=== PATIENT | female | born 1985 | race American Indian/Alaskan Native ===

== ENCOUNTER 2022-10-08 15:43 | Observation (INO) | payer OTHER, SELFPAY ==
[2022-10-08] VITALS (8 sets, daily range): BP systolic 109–135; BP diastolic 68–82; PULSE 75–99; RESP 13–20; TEMP 36.6–37.4; O2SAT 99–100; BMI 23.3
--- NOTE | ~2022-10-08 | MR_ITS ---
EXAMINATION: MR brain/brain stem wo con DATE: 10/11/2022 17:37 INDICATION: Seizure TECHNIQUE: Magnetic resonance imaging (MRI) of the brain and brainstem was performed without intraven ous contrast. Sequences included sagittal and axial T1-weighted SE, axial diffusion-weighted FS SE, a xial 3D SWAN, axial T2-weighted FLAIR Propeller, axial T2-weighted Propeller, coronal T2-weighted FLA IR, and coronal T1-weighted 3D FSPGR. Postcontrast axial T1-weighted SE was obtained. Apparent diffus ion coefficient (ADC) maps were created. COMPARISON: Head CT dated 10/08/2022 FINDINGS: There are no areas of restricted diffusion to suggest acute infarction. No intracranial hemorrhage or abnormal intracranial mass lesion. There are no intraparenchymal signal abnormalities seen on the ot her pulse sequences. Bilateral hippocampi appear normal and symmetric. No evident worley matter heterot opias or other neuronal migrational abnormalities. The ventricles are symmetric and normal in size. T here are no abnormal extra-axial fluid collections. Flow voids are seen in the cerebral arteries on t he T2-weighted sequences consistent with their expected patency. Small focus of susceptibility artifa ct along the left frontoparietal scalp likely related to a reported skin radha from recent posttrau matic scalp laceration. Visualized orbits and soft tissues are unremarkable. IMPRESSION: 1. Normal brain. Reviewed, dictated and finalized at location A. IMPRESSION: 1. Normal brain.
--- NOTE | ~2022-10-08 | CT_ITS ---
EXAMINATION: CT cervical spine wo con DATE: 10/08/2022 16:48 INDICATION: Head injury. TECHNIQUE: Computed tomography (CT) of the cervical spine was performed without intravenous contrast. Automated exposure control and iterative reconstruction technique were employed. The dose-length pro duct was 160.61 mGy-cm. COMPARISON: None FINDINGS: There is 3 degrees levocurvature of cervical spine. Vertebral body heights and intervertebr al disc heights are normal. The following disc levels are specifically discussed: C2-C3 through C6-C7: There is no uncovertebral joint osteoarthritis. There is no facet joint osteoart hritis. There is no neural foraminal stenosis. There is no central canal stenosis. C7-T1: There is no uncovertebral joint osteoarthritis. There is mild right and moderate left facet nicho int osteoarthritis. There is mild left neural foraminal stenosis. There is no central canal stenosis. IMPRESSION: 1. No fracture. 2. Mild cervical spondylosis. Reviewed, dictated and finalized at location E.
--- NOTE | ~2022-10-08 | CT_ITS ---
EXAMINATION: CT brain wo con DATE: 10/08/2022 16:48 INDICATION: Head injury. TECHNIQUE: Computed tomography (CT) of the head was performed without intravenous contrast. The mA wa s adjusted according to patient size. Iterative reconstruction technique was employed. The dose-lengt h product was 605.33 mGy-cm. COMPARISON: Head CT 01/16/2009 FINDINGS: There is no intracranial hemorrhage, acute infarction, or abnormal intracranial mass lesion . The ventricles are normal in size. There is left-sided scalp soft tissue swelling. The paranasal si nuses are clear. The mastoid air cells are normal. The orbits are normal. IMPRESSION: 1. Normal brain. Reviewed, dictated and finalized at location E. IMPRESSION: 1. Normal brain.
--- NOTE | ~2022-10-08 | US_ITS ---
EXAMINATION: US carotid duplex BI DATE: 10/09/2022 14:08 INDICATION: Syncope. TECHNIQUE: Grayscale, color Doppler, and pulsed Doppler images of the cervical carotid arteries were obtained. The degree of vessel stenosis is placed in one of the following categories: normal, <50%, 5 0-69%, >=70% but less than near-occlusion, near-occlusion, or total occlusion. Note that percent sten osis relative to normal distal artery lumen diameter is indirectly measured from velocity measurement s as described by Vivek, et al. Radiology 2003; 229:340-346. COMPARISON: None. FINDINGS: RIGHT: The right common carotid artery (CCA) peak systolic velocity (PSV) is 120 cm/s. The right internal ca rotid artery (ICA) PSV is 89 cm/s. The right ICA end-diastolic velocity (EDV) is 29 cm/s. The right I CA/CCA PSV ratio is 0.7. Grayscale and color Doppler images yield an estimate of 0% diameter reductio n from plaque in the ICA. There is antegrade flow in the right vertebral artery. LEFT: The left CCA PSV is 127 cm/s. The left ICA PSV is 74 cm/s. The left ICA EDV is 29 cm/s. The left ICA/ CCA PSV ratio is 0.6. Grayscale and color Doppler images yield an estimate of 0% diameter reduction f rom plaque in the ICA. There is antegrade flow in the left vertebral artery. IMPRESSION: 1. Normal internal carotid arteries. Reviewed, dictated and finalized at location E.
--- NOTE | 2022-10-08 17:15 | ECG_ITS ---
Measurements Intervals [place] Rate: 76 P: 75 VA: 197 QRS: 68 QRSD: 122 T: 73 QT: 393 QTc: 443 Interpretive Statements SINUS RHYTHM POSSIBLE RIGHT VENTRICULAR CONDUCTION DELAY [RSR (QR) IN V1/V2] SEPTAL MYOCARDIAL INFARCTION , OF INDETERMINATE AGE [40+ ms Q WAVE IN V1/V2] COMPARED TO ECG 04/20/2018 07:07:42 ABNORMAL ECG SINUS RHYTHM NOW PRESENT MYOCARDIAL INFARCT FINDING NOW PRESENT Electronically Signed On 10-09-2022 10:03:57 CDT by Junior Mayes M.D.
--- NOTE | 2022-10-08 17:16 | ED.HEATRA ---
HPI - Head Injury General Chief complaint: Head Injury <JODI Howard Last Filed: 10/08/22 19:55> Stated complaint: head injury, glf <JODI Howard Last Filed: 10/08/22 19:55> Time Seen by Provider: 10/08/22 15:57 <JODI Howard Last Filed: 10/08/22 19:55> Source: patient and family <JODI Howard Last Filed: 10/08/22 19:55> Mode of arrival: EMS <JODI Howard Last Filed: 10/08/22 19:55> Limitations: no limitations <JODI Howard Last Filed: 10/08/22 19:55> History of Present Illness HPI Narrative: Patient is a 37-year-old female who presents to the ED via EMS with report of fall with head injury. Patient reports she was at a family members birthday alliance party today and went out to her car to get her chapstick. She states last thing she remembers is walking out of the door and getting near her car. She was found on the ground by another family member having hit her head and being temporarily unconscious. Patient did arouse when her name was called. There was a laceration noted to the left side of her head. Mother at bedside reports the family member that found her thought there may have been some seizure-like activity/shaking initially before the patient came to. Patient does not remember the fall. She does not remember feeling dizzy or lightheaded before the fall occurred. She does not remember tripping on anything. Mother notes there was a curb right nearby where the patient had fallen. She reports a remote history of a seizure 10 years ago which was thought to be attributed to her taking tramadol. She has not had any further seizures. She is not on any seizure medication or blood thinners. Patient reports she feels lightheaded and nauseous currently. Denies any other areas of pain. Denies vision changes. Denies weakness or numbness. Denies incontinence. Denies tongue injury. Patient denies any cardiac disease. Denies family history of sudden cardiac . <Miryam Birmingham PA-C - Last Filed: 10/08/22 19:55> Related Data Home medications: Home Medications Medication Instructions Recorded Confirmed acetaminophen 325 mg tablet 650 mg PO PRN PRN Pain (Scale 10/08/22 10/08/22 (Tylenol) Score 1-3) norgestimate 0.25 mg-ethinyl 1 tablet PO DAILY 10/08/22 10/08/22 estradiol 35 mcg tablet (Haylee) <Miryam Birmingham PA-C - Last Filed: 10/08/22 19:55> Allergies/Adverse reactions: Allergies Allergy/AdvReac Type Severity Reaction Status Date / Time No Known Allergies Allergy Unknown Verified 10/08/22 21:37 <Miryam Birmingham PA-C - Last Filed: 10/08/22 19:55> Review of Systems Review of Systems: CONSTITUTIONAL: Denies fever, chills, or sweats. EYES: Denies visual changes. CARDIOVASCULAR: Denies chest pain. RESPIRATORY: Denies dyspnea. GASTROINTESTINAL: See HPI. MUSCULOSKELETAL: Denies back pain, joint pain, or myalgia. NEUROLOGIC: See HPI. <Miryam Birmingham PA-C - Last Filed: 10/08/22 19:55> All systems reviewed & are unremarkable except as noted in HPI and below <Miryam Birmingham PA-C - Last Filed: 10/08/22 19:55> [facility] Past Medical History Medical History: Medical History (Updated 10/09/22 @ 16:09 by Bharat Perry APRN) Anxiety Single seizure <Miryam Birmingham PA-C - Last Filed: 10/08/22 19:55> Surgical History Surgical History: Surgical History (Updated 10/08/22 @ 21:27 by Susan Oliveros PA-C) History of tonsillectomy <Miryam Birmingham PA-C - Last Filed: 10/08/22 19:55> Family History Family History: Family History Other Unknown family medical history <Miryam Birmingham PA-C - Last Filed: 10/08/22 19:55> Social History Social History: Social History (Updated 10/08/22 @ 22:48 by Susan Oliveros PA-C) Social History: Heidi
[2022-10-08] MEDS: SODIUM CHLORIDE 0.9% IV 1,000 ML 999 ML IV CONT ×2 (17:24→18:13)
[2022-10-08] MEDS: ONDANSETRON INJ 4 MG/2 ML VIAL IV PUSH (17:24)
[2022-10-08] MEDS: ACETAMINOPHEN 500 MG TABLET 1000 MG PO (18:04)
[2022-10-08 19:13] LABS: Basophils Percent Auto 0.3 % (0.2-1.2); Eosinophils Percent Auto 0.2 % (0-4.4); Hematocrit 36.7 % (37.0-47.0); Hemoglobin 11.8 g/dL (12.0-15.0); Immature Granulocyte Absolute 0.02 K/mm3 (0.00-0.031); Immature Granulocyte Percent A 0.2 % (0-0.5); Lymphocytes Absolute Auto 0.82 K/mm3 (0.9-3.2); Lymphocytes Percent Auto 7.6 % (18.3-44.2); Mean Corpuscular HGB Conc 32.2 g/dl (32-36); Mean Corpuscular Hemoglobin 31.2 pg (26-34); Mean Corpuscular Volume 97.1 fl (80-100); Mean Platelet Volume 10.4 fl (7.4-10.4); Monocytes Absolute Auto 0.5 K/mm3 (0.1-0.6); Neutrophils Absolute Auto 9.3 K/mm3 (1.3-6.7); Neutrophils Percent Auto 86.7 % (45.5-73.1); Platelet Count Result 199 k/mm3 (150-375); Red Blood Count 3.78 M/mm3 (4.2-5.4); Red Cell Distribution Width 13.2 % (11.5-14.5); White Blood Count 10.8 K/mm3 (4.5-10.0)
[2022-10-08 19:22] LABS: Appearance Urine Clear (Clear); Bilirubin Urine Negative (Negative); Blood Urine Negative (Negative); Color Urine Yellow (Yellow); Glucose Urine UA Negative (Negative); Ketones Urine Negative (Negative); Leukocyte Esterase Ur Negative LEU/UL (Negative); Nitrate Urine Negative (Negative); Protein Urine Negative (Negative); Urobilinogen Urine 0.2 mg/dL (<2.0)
[2022-10-08 19:23] LABS: Add Urine Microscopic? NO
[2022-10-08 19:27] LABS: Prothrombin Time 13.9 Seconds (11.1-14.7)
[2022-10-08 19:28] LABS: Partial Thromboplastin Time 27.9 SECONDS (22.3-36.8)
[2022-10-08 19:38] LABS: Alanine Aminotransferase 15 U/L (6-35); Albumin Level 3.7 g/dL (3.5-5.1); Alkaline Phosphatase 44 U/L (38-126); Anion Gap 8 mmol/L (8-16); Aspartate Amino Transferase 23 U/L (14-36); Bilirubin,Total 0.2 mg/dL (0.2-1.3); Blood Urea Nitrogen 8 mg/dL (7-17); Calcium 7.4 mg/dL (8.4-10.2); Carbon Dioxide 23 mmol/L (22-30); Chloride 106 mmol/L (98-107); Estimated CRCL calculation 118 ml/min; Estimated Glomerular Filt Rate > 60; Glucose 93 mg/dL (65-110); Magnesium 1.7 mg/dL (1.6-2.3); Potassium 4.3 mmol/L (3.4-5.0); Sodium 137 mmol/L (137-145)
[2022-10-08 19:40] LABS: Lactic Acid Reflex 1.3 mmol/L (0.7-2.0)
[2022-10-08 19:49] LABS: Troponin I < 0.012 ng/mL (0.000-0.034)
[2022-10-08] MEDS: NICOTINE (*PBKC) 14 MG PATCH 1 PATCH TRANSDERM (20:30)
--- NOTE | 2022-10-08 20:35 | ADMGEN ---
This patient, Diane Shook, was admitted to Medical Room 346-01. Patient/family oriented to hospital policies and general routines including ID bracelet, bed and alarms, visiting hours, pain management, procedures, bathroom and other care routines, personal items, smoking policy, room service/diet, and visiting hours. Information on how to activate the Rapid Response Team has been discussed. Patient/Family are encouraged to report perceived risks to care and to ask questions if they do not understand what they are told or what they should do.
--- NOTE | 2022-10-08 21:23 | PM.IMHP ---
H&P: HPI History of Present Illness Date/Time: 10/08/22 21:30 Chief Complaint: Head injury, loss of consciousness. Narrative: This is a pleasant 37-year-old female with history of single seizure attributed a combination of medications who presented to the emergency department via EMS for evaluation of head injury and loss of consciousness. The patient provides the following history. She was in her usual state of health today and this afternoon she was at a birthday libertarian for a family member. She remembers walking out to her car to get her lip balm and to vape and the next thing she knows she is waking up on the ground. Family members found her unconscious next to the car with mild shaking of her extremities. It sounds as though she was only briefly unresponsive and she was alert and oriented when she came to. There was no tongue bite or bladder or bowel incontinence with this episode. She denies antecedent symptoms and specifically denies feelings of lightheadedness, dizziness, chest pain, pleuritic pain, palpitations, shortness of breath, nausea, vomiting, and sweats. Vital signs were stable on arrival to the ED. CMP and CBC were unremarkable compared to previous labs. EKG showed a sinus rhythm without acute ST segment changes. Head and cervical spine CTs did not show any acute findings. A left parietal scalp laceration was repaired in the ED. She is being admitted in this setting for close monitoring and further evaluation. Review of Systems Review of Systems: Twelve systems were reviewed and are negative except for as per HPI. [facility] Past Medical History Medical History (Updated 10/08/22 @ 22:50 by Susan Oliveros PA-C) Anxiety Single seizure Surgical History Surgical History (Updated 10/08/22 @ 21:27 by Susan Oliveros PA-C) History of tonsillectomy Family History Family History Other Unknown family medical history Social History Social History (Updated 10/08/22 @ 22:48 by Susan Oliveros PA-C) Social History: Surrogate medical decision maker: Leann Howe, mother. Code status: Full code. Smoking status: Current every day smoker Tobacco type: e-cigarettes/vaping Additional occupation/education comments: polisher hand. Meds Home Medications and Allergies Home Medications Medication Instructions Recorded Confirmed Type acetaminophen 325 mg tablet 650 mg PO PRN PRN Pain (Scale 10/08/22 10/08/22 History (Tylenol) Score 1-3) norgestimate 0.25 mg-ethinyl 1 tablet PO DAILY 10/08/22 10/08/22 History estradiol 35 mcg tablet (Haylee) Allergies Allergy/AdvReac Type Severity Reaction Status Date / Time No Known Allergies Allergy Unknown Verified 10/08/22 21:37 Vital Signs Vital Signs - 24 hr 10/08/22 15:42 10/08/22 15:45 10/08/22 16:15 Temperature 99.4 F Pulse Rate 97 99 90 Respiratory Rate 18 16 20 Blood Pressure 135/79 135/79 128/77 Pulse Oximetry 99 100 99 Oxygen Delivery Room Air 10/08/22 16:45 10/08/22 17:15 10/08/22 17:45 Temperature Pulse Rate 90 83 75 Respiratory Rate 18 19 13 Blood Pressure 116/79 109/68 117/78 Pulse Oximetry 100 100 100 Oxygen Delivery 10/08/22 18:15 Temperature Pulse Rate 75 Respiratory Rate 15 Blood Pressure 120/82 Pulse Oximetry 100 Oxygen Delivery Exam Narrative: General: Well-developed female in no acute distress. Weight: 73.9 kg. BMI: 23.4. HEENT: Small laceration on the left parietal scalp with surrounding dry blood. One staple is noted. PERRL, EOMI. Sclera anicteric. Oral mucosa moist. Oropharynx clear. Neck: Supple. No midline vertebral tenderness. Respiratory: Lungs are clear to auscultation bilaterally. Cardiovascular: Regular rate and rhythm with S1-S2. Gastrointestinal: Abdomen is soft, nontender, and nondistended with positive bowel sounds. Skin: Warm and dry. No rash or lesions on limited exam. Extremities: No cyanosis, clubbin
[2022-10-09] VITALS (10 sets, daily range): BP systolic 103–156; BP diastolic 62–122; PULSE 70–83; RESP 16–20; TEMP 36.2–36.9; O2SAT 97–100
[2022-10-09 06:02] LABS: Hematocrit 35.2 % (37.0-47.0); Hemoglobin 11.4 g/dL (12.0-15.0); Mean Corpuscular HGB Conc 32.4 g/dl (32-36); Mean Corpuscular Hemoglobin 30.9 pg (26-34); Mean Corpuscular Volume 95.4 fl (80-100); Mean Platelet Volume 10.5 fl (7.4-10.4); Platelet Count Result 200 k/mm3 (150-375); Red Blood Count 3.69 M/mm3 (4.2-5.4); White Blood Count 8.5 K/mm3 (4.5-10.0)
[2022-10-09] MEDS: ACETAMINOPHEN 325 MG TABLET 650 MG PO ×2 (06:02→16:13)
[2022-10-09 06:17] LABS: Anion Gap 5 mmol/L (8-16); Blood Urea Nitrogen 8 mg/dL (7-17); Calcium 7.7 mg/dL (8.4-10.2); Carbon Dioxide 26 mmol/L (22-30); Chloride 105 mmol/L (98-107); Estimated CRCL calculation 118 ml/min; Estimated Glomerular Filt Rate > 60; Glucose 90 mg/dL (65-110); Magnesium 1.8 mg/dL (1.6-2.3); Potassium 4.1 mmol/L (3.4-5.0); Sodium 136 mmol/L (137-145)
--- NOTE | 2022-10-09 09:59 | PM.IMPN ---
Progress Note: A&P Assessment and Plan (1) Syncope and collapse: Code(s): R55 - Syncope and collapse Status: Acute Assessment and Plan: 10/08: patient admitted for observation with slightly abnormal EKG orders for echocardiogram and EEG are pending for Monday. Remote history of single seizure event. added carotid Dopplers which were normal. (2) Laceration of scalp: Qualifiers: Encounter type: initial encounter Qualified Code(s): S01.01XA - Laceration without foreign body of scalp, initial encounter Code(s): S01.01XA - Laceration without foreign body of scalp, initial encounter Status: Acute Assessment and Plan: Repaired with sutures in the emergency department. [place] to be removed in 7 days. (3) Concussion: Code(s): S06.0XAA - Concussion with loss of consciousness status unknown, initial encounter Status: Acute Assessment and Plan: 10/08: Patient complaining of headache and drowsiness/fatigue (4) Nicotine dependence due to vaping non-tobacco product: Code(s): F17.200 - Nicotine dependence, unspecified, uncomplicated Status: Acute Assessment and Plan: Nicotine patch and gum ordered. (5) Unresponsive episode: Code(s): R40.4 - Transient alteration of awareness Status: Acute Assessment and Plan: See #1. Plan Observation for echocardiogram and EEG. Discharge with concussion instructions and instructions to remove radha in 7 days at a clinic if workup is negative Time Spent With Patient Time with patient: 25 - 35 minutes Subjective Date/time seen: 10/09/22 09:59 Interval history: This is a 37-year-old female patient with a remote history of a single seizure and history of anxiety who was admitted to the hospital for monitoring after syncopal event. She reports that she went to her car to use her vape and woke up with people all around her. She had a laceration to the head repaired with radha in the ER. This morning patient only complaining of headache and feeling subtle drowsy. She is requesting a nicotine patch because she uses about 25 mg of vape liquid per day. Patient remains admitted today for EEG and Echocardiogram which will be done tomorrow. Review of Systems Review of Systems: All systems reviewed & are unremarkable except as noted in HPI and below Constitutional: Constitutional: Denies chills and Reports fatigue Cardiovascular: Cardiovascular: Denies chest pain, Denies leg edema and Denies palpitations Respiratory: Respiratory: Denies cough, Denies dyspnea and Denies wheezing Gastrointestinal: Gastrointestinal: Denies abdominal pain, Denies diarrhea, Denies nausea and Denies vomiting Neurologic: Denies confusion, Reports headache(s) and Denies numbness Exam Narrative: GENERAL: Generally well appearing, alert and oriented, in no apparent distress. She is pleasant and conversant in full sentences. HEENT: Pupils are equally round and briskly reactive to light. Extraocular muscles are intact. Oral mucous membranes are moist without lesions. laceration repaired with radha on the head no active bleeding NECK: The patient has no noted JVD. No adenopathy is appreciated. CHEST/LUNGS: Lungs are clear bilaterally without rhonchi, rales, or wheezes. There is no subcutaneous air appreciated. There is no tenderness to the chest wall. HEART: The patient has a regular rate and rhythm. No murmurs, rubs, or gallops are appreciated. Distal pulses are 2+. No carotid bruits appreciated. ABDOMEN: The patient's abdomen is soft, nontender, and nondistended. Bowel sounds are positive. No organomegaly is appreciated. No masses are appreciated. There are no peritoneal signs. EXTREMITIES: The patient has no peripheral edema. There is no focal long bone tenderness or deformity. SKIN: The patient's skin is warm and dry, without rashes or lesions. multiple tattoos with no signs of infection PSYCHIATRIC: The patient has n
[2022-10-09] MEDS: NICOTINE (*PBKC) 21 MG PATCH 1 PATCH TRANSDERM (12:39)
[2022-10-09] MEDS: traMADol HCL (*CRX) 50 MG TABLET PO (20:46)
[2022-10-10] VITALS (11 sets, daily range): BP systolic 98–114; BP diastolic 63–77; PULSE 65–90; RESP 16–18; TEMP 36.6–37.2; O2SAT 100
--- NOTE | 2022-10-10 | ECHO_ITS ---
Patient Info Name: Diane Shook Age: 37 years : 1985 Gender: Female Ht: 70 in Wt: 162 lbs BSA: 1.91 m2 HR: 77 bpm BP: 112 / 69 mmHg Heart Rhythm: Sinus Rhythm Technical Quality: Fair Exam Date: 10/10/2022 10:47 AM Exam Location: [facility] Pulmonary Exam Room: 346 Patient Status: Inpatient Admit Date: 10/08/2022 Staff Ordering Physician: Susan Oliveros PA-C [place] [employer] Worker: Anne-Marie Johnson RDCS Attending Provider: Edmund Barrios MD Referring Physician: Arlin DENIS; Exam Type: CA echo doppler color flow Study Info Indications - syncope Complete two-dimensional, color flow and Doppler transthoracic echocardiogram is performed. Summary 1. Complete two-dimensional, color flow and Doppler transthoracic echocardiogram is performed. 2. Left ventricular chamber dimension is normal. 3. Left ventricular systolic function is normal, estimated at 60-65%. 4. The left ventricular diastolic function is normal. 5. E/e' 5 is not elevated. 6. There is trace tricuspid valve regurgitation. 7. No pulmonary hypertension, estimated pulmonary arterial systolic pressure is 29 mmHg. Left Ventricle E/e' 5 is not elevated. Left ventricular chamber dimension is normal. Left ventricular systolic function is normal, estimated at 60-65%. The left ventricular diastolic function is normal. Right Ventricle Right ventricular chamber dimension is normal. Right ventricular systolic function is normal. Left Atria Left atrial chamber dimension is normal. Right Atria Right atrial chamber dimension is normal. Aortic Valve The aortic valve is trileaflet. There is no aortic valve stenosis. There is no aortic valve regurgitation. Pulmonic Valve There is no pulmonic regurgitation. Mitral Valve There is no mitral valve stenosis. There is no mitral valve regurgitation. Tricuspid Valve There is trace tricuspid valve regurgitation. No pulmonary hypertension, estimated pulmonary arterial systolic pressure is 29 mmHg. Pericardium/Pleural There is no pericardial effusion. Inferior Vena Cava Normal inferior vena cava with >50% collapse upon inspiration consistent with normal right atrial pressure, 5 mmHg. Aorta The aortic root size at the sinus of Valsalva is normal. Left Ventricular Outflow Tract Name Value Normal LVOT 2D LVOT Diameter 2.0 cm LVOT Doppler LVOT Peak Gradient 5 mmHg LVOT Mean Gradient 3 mmHg LVOT VTI 23 cm LVOT VTI/AV VTI Ratio 0.8 LVOT Stroke Volume 71 ml Pulmonic Valve Name Value Normal PV Doppler PV Peak Gradient 4 mmHg Mitral Valve Name Value Normal MV Doppler
[2022-10-10] MEDS: ACETAMINOPHEN 325 MG TABLET 650 MG PO ×2 (03:38→12:04)
[2022-10-10] MEDS: NICOTINE (*PBKC) 21 MG PATCH 1 PATCH TRANSDERM (08:47)
[2022-10-10 10:52] LABS: Hematocrit 36.7 % (37.0-47.0); Mean Corpuscular HGB Conc 32.7 g/dl (32-36); Mean Corpuscular Hemoglobin 31.5 pg (26-34); Mean Corpuscular Volume 96.3 fl (80-100); Mean Platelet Volume 10.5 fl (7.4-10.4); Platelet Count Result 179 k/mm3 (150-375); Red Blood Count 3.81 M/mm3 (4.2-5.4); Red Cell Distribution Width 13.2 % (11.5-14.5); White Blood Count 5.1 K/mm3 (4.5-10.0)
[2022-10-10 11:01] LABS: Anion Gap 30 mmol/L (8-16); Blood Urea Nitrogen 7 mg/dL (7-17); Calcium 8.4 mg/dL (8.4-10.2); Carbon Dioxide 25 mmol/L (22-30); Chloride 84 mmol/L (98-107); Estimated CRCL calculation 118 ml/min; Estimated Glomerular Filt Rate > 60; Glucose 116 mg/dL (65-110); Potassium 3.7 mmol/L (3.4-5.0); Sodium 139 mmol/L (137-145)
--- NOTE | 2022-10-10 11:16 | PCNEURO ---
EEG was attempted but patient has a gash with radha on left side of head that is to sore/sensitive for the electrodes proper placement.
--- NOTE | 2022-10-10 14:18 | PM.IMPN ---
Progress Note: A&P Assessment and Plan (1) Syncope and collapse: Code(s): R55 - Syncope and collapse Status: Acute Assessment and Plan: Slightly abnormal EKG. Remote history of single seizure event. Carotid Dopplers which were normal. Echocardiogram with EF of 60 65%, normal diastolic function and no pulmonary hypertension. EEG could not be done due to usability to tolerate head probs. Neurology consulted due to possible seizure. (2) Laceration of scalp: Qualifiers: Encounter type: initial encounter Qualified Code(s): S01.01XA - Laceration without foreign body of scalp, initial encounter Code(s): S01.01XA - Laceration without foreign body of scalp, initial encounter Status: Acute Assessment and Plan: Repaired with sutures in the emergency department. Radha to be removed in 7 days. (3) Concussion: Code(s): S06.0XAA - Concussion with loss of consciousness status unknown, initial encounter Status: Acute Assessment and Plan: Patient complaining of headache and drowsiness/fatigue. (4) Nicotine dependence due to vaping non-tobacco product: Code(s): F17.200 - Nicotine dependence, unspecified, uncomplicated Status: Acute Assessment and Plan: Nicotine patch and gum ordered. (5) Unresponsive episode: Code(s): R40.4 - Transient alteration of awareness Status: Acute Assessment and Plan: See #1. Plan Discharge with concussion instructions and instructions to remove radha in 7 days at a clinic if workup is negative Subjective Date/time seen: 10/10/22 14:18 Interval history: Patient doing okay today. She was unable to get EEG due to scalp laceration becoming too painful when probes were placed on her head. She is continued to have headache and some neck pain. Started her on some Flexeril and ketorolac for her head and neck pain. Consulted Neurology due to patient unable to get EEG performed and possible seizures. Exam Narrative: GENERAL: Comfortable, no acute distress HENMT: moist mucous membranes EYES: EOM intact b/l NECK: no lymphadenopathy RESPIRATORY: clear to auscultation CARDIO: RRR GI: soft, nontender, bowel sounds present SKIN: no rashes EXTREMITIES: no edema, redness or tenderness Objective Data Vital Signs Vital Signs: Vital Signs - 24 hr 10/09/22 14:55 10/09/22 14:55 10/09/22 14:55 Temperature Pulse Rate Respiratory Rate Blood Pressure 103/64 113/66 156/122 H Pulse Oximetry Oxygen Delivery 10/09/22 16:00 10/09/22 20:00 10/09/22 20:42 Temperature 98.5 F Pulse Rate 76 72 72 Respiratory Rate 20 Blood Pressure 108/72 109/62 Pulse Oximetry 97 Oxygen Delivery 10/09/22 20:42 10/09/22 20:00 10/09/22 20:00 Temperature Pulse Rate 83 Respiratory Rate Blood Pressure 103/63 Pulse Oximetry Oxygen Delivery Room Air 10/10/22 00:00 10/10/22 04:00 10/10/22 05:31 Temperature 98 F Pulse Rate 68 80 68 Respiratory Rate 18 Blood Pressure 112/69 Pulse Oximetry 100 Oxygen Delivery 10/10/22 08:50 Temperature Pulse Rate Respiratory Rate Blood Pressure Pulse Oximetry Oxygen Delivery Room Air Intake/Output Intake/Output: Intake & Output 10/07/22 10/08/22 10/09/22 10/10/22 23:59 23:59 23:59 23:59 Intake Total 2240 1420 680 Balance 2240 1420 680 Meds/Results Medications: Active Medications Generic Name Dose Route Start Last Admin Trade Name Freq PRN Reason Stop Dose Admin Acetaminophen 650 mg 10/08/22 21:29 10/10/22 12:04 Acetaminophen 325 Mg Tablet PO 650 mg Q6H PRN Administration Mild Pain (1-3) or Fever Cyclobenzaprine HCl 5 mg 10/10/22 14:14 Cyclobenzaprine Hcl 5 Mg Tablet PO Q8H PRN Muscle Spasm and/or neck pain Ketorolac Tromethamine 30 mg 10/10/22 14:14 Ketorolac 30 Mg/Ml Vial (*Bkc) IV PUSH Q6H PRN Nev[place]
[2022-10-10] MEDS: KETOROLAC 30 MG/ML VIAL (*BKC) IV PUSH (16:27)
[2022-10-10] MEDS: NICOTINE (*PBKC) 2 MG GUM PO (20:13)
[2022-10-11] VITALS (7 sets, daily range): BP systolic 108–117; BP diastolic 60–69; PULSE 64–86; RESP 16–18; TEMP 36.2–37.1; O2SAT 99–100
[2022-10-11 06:20] LABS: Basophils Percent Auto 0.7 % (0.2-1.2); Eosinophils Absolute Auto 0.1 K/mm3 (0-0.3); Eosinophils Percent Auto 2.4 % (0-4.4); Hemoglobin 10.9 g/dL (12.0-15.0); Immature Granulocyte Absolute 0.01 K/mm3 (0.00-0.031); Immature Granulocyte Percent A 0.2 % (0-0.5); Lymphocytes Absolute Auto 2.32 K/mm3 (0.9-3.2); Lymphocytes Percent Auto 39.1 % (18.3-44.2); Mean Corpuscular Hemoglobin 31.7 pg (26-34); Mean Corpuscular Volume 95.9 fl (80-100); Mean Platelet Volume 10.3 fl (7.4-10.4); Monocytes Absolute Auto 0.4 K/mm3 (0.1-0.6); Monocytes Percent Auto 7.3 % (2.6-8.5); Neutrophils Percent Auto 50.3 % (45.5-73.1); Platelet Count Result 207 k/mm3 (150-375); Red Blood Count 3.44 M/mm3 (4.2-5.4); White Blood Count 5.9 K/mm3 (4.5-10.0)
[2022-10-11 06:31] LABS: Alanine Aminotransferase 14 U/L (6-35); Albumin Level 3.2 g/dL (3.5-5.1); Alkaline Phosphatase 36 U/L (38-126); Anion Gap 2 mmol/L (8-16); Aspartate Amino Transferase 19 U/L (14-36); Bilirubin,Total 0.3 mg/dL (0.2-1.3); Blood Urea Nitrogen 11 mg/dL (7-17); Calcium 7.8 mg/dL (8.4-10.2); Carbon Dioxide 28 mmol/L (22-30); Chloride 104 mmol/L (98-107); Estimated CRCL calculation 103 ml/min; Estimated Glomerular Filt Rate > 60; Glucose 88 mg/dL (65-110); Potassium 4.1 mmol/L (3.4-5.0); Sodium 134 mmol/L (137-145)
[2022-10-11] MEDS: NICOTINE (*PBKC) 21 MG PATCH 1 PATCH TRANSDERM (08:53)
[2022-10-11] MEDS: ACETAMINOPHEN 325 MG TABLET 650 MG PO (08:56)
--- NOTE | 2022-10-11 10:00 | WPDNEURCNPN ---
Assessment and Plan Assessment and plan (1) Unresponsive episode: Code(s): R40.4 - Transient alteration of awareness Status: Acute (2) Closed head injury: Qualifiers: Encounter type: initial encounter Qualified Code(s): S09.90XA - Unspecified injury of head, initial encounter Code(s): S09.90XA - Unspecified injury of head, initial encounter Status: Acute (3) Laceration of scalp: Qualifiers: Encounter type: initial encounter Qualified Code(s): S01.01XA - Laceration without foreign body of scalp, initial encounter Code(s): S01.01XA - Laceration without foreign body of scalp, initial encounter Status: Acute (4) Concussion: Code(s): S06.0XAA - Concussion with loss of consciousness status unknown, initial encounter Status: Acute Assessment and Plan: Ms. Shook is a 37 year old female with a history of prior single seizure presenting due to an episode of loss of consciousness. It sounds like she has had one prior provoked seizure in the past. This most recent episode is also concerning for seizure, seemingly unprovoked. UDS was not done during this admisison but patient denies any illicit substance use. We discussed risk/benefits of start anti-seizure medication given she has only had one unprovoked seizure. Patient would like to start medication at this time. - MRI Brain w/o contrast - Routine EEG can be obtained as outpatient - Start Keppra 500mg BID - No driving until event free for at least 6 months - [place] [facility] [place] 3 [place] Consult date: 10/11/22 Reason for consult: Possible seizure vs syncope HPI: Diane Shook is a 37 year old female with a history of single prior seizure presenting due to an episode of loss of consciousness. Patient was at a birthday alliance party on day of admission when she was going to her car to get her lip balm and vape. She has no memory of walking outside or losing consciousness. She lost consciousness while outside, but denied any preceding symptoms prior to the episode. Family noted that she was unconscious and stiffness extremities. The episode lated several minutes, and she was somewhat confused afterwards. There was no tongue biting or incontinence. She was taken to [facility] where she had a normal CT head. She was admitted for further work-up of the event. Carotid doppler studies and echocardiogram are unrevealing. She cannot tolerate EEG due to the leads (she has a scalp laceration). Patient reports one prior seizure many year ago, that were attributed to medication. She was taking tramadol, Flexeril, and antidepressant at that time. She denies any family history of seizures. She denies any illicit drug use. UDS was not done during this admission. Review of Systems Constitutional: Constitutional: Denies chills, Denies fever(s) and Denies weight loss Eyes: Eyes: Denies diplopia and Denies loss of vision ENT: Denies dizziness, Denies hearing loss and Denies tinnitus Cardiovascular: Cardiovascular: Denies chest pain, Denies syncope and Denies dyspnea Respiratory: Respiratory: Denies cough, Denies dyspnea and Denies wheezing Gastrointestinal: Gastrointestinal: Denies abdominal pain, Denies change in bowel habits and Denies vomiting Genitourinary: Genitourinary: Denies urinary incontinence Musculoskeletal: Musculoskeletal: Reports back pain, Denies arthralgias and Denies joint swelling Integumentary/Breasts: Skin/Breast: Denies new lesions, Denies rash and Reports wounds Neurologic: Reports as per HPI, Denies dizziness, Denies syncope and Denies loss of vision Psychiatric: Psychiatric: Reports anxiety and Denies depression Endocrine: Endocrine: Denies cold intolerance and Denies heat intolerance Hematologic/Lymphatic: Hematologic/Lymphatic: Denies easy bleeding and Denies easy bruising Allergic/Immunologic: Allergic/Immunologic: Denies no additional allergic/immunologic complaints and Den
--- NOTE | 2022-10-11 13:34 | PM.DS ---
DS: Admitting Diagnosis Discharge Date 10/11/22 Admitting Diagnosis seizure-like activity DS: Discharge Diagnosis Discharge Diagnosis (1) Syncope and collapse: Code(s): R55 - Syncope and collapse Status: Acute (2) Laceration of scalp: Qualifiers: Encounter type: initial encounter Qualified Code(s): S01.01XA - Laceration without foreign body of scalp, initial encounter Code(s): S01.01XA - Laceration without foreign body of scalp, initial encounter Status: Acute (3) Concussion: Code(s): S06.0XAA - Concussion with loss of consciousness status unknown, initial encounter Status: Acute (4) Nicotine dependence due to vaping non-tobacco product: Code(s): F17.200 - Nicotine dependence, unspecified, uncomplicated Status: Acute (5) Unresponsive episode: Code(s): R40.4 - Transient alteration of awareness Status: Acute DS: Summary Hospital Course Hospital Course: this is a 37-year-old female with a past medical history of a single seizure that could be attributed to use of medications the presented to the ED on 10/08/2022 for evaluation of head injury and loss of consciousness. Patient only briefly lost consciousness and was alert oriented when she came to. She did not bite her tongue or lose bowel or bladder control. Patient's labs and vital signs were unremarkable. EKG showed sinus rhythm without ST segment changes. Patient's cervical spine and head CTs no acute findings. She did have a scalp laceration that was stapled in the ED. EEG and echocardiogram ordered. Due to patient's head laceration she was unable to obtain an EEG. Neurology consulted. Echocardiogram came back normal. Neurology recommending brain MRI without contrast, EEG as an outpatient, no driving for at least 6 months and following up with Neurology in 3 months. She started on Keppra 500 mg b.i.d.. will call patient with MRI results. Loss of bowel signs are stable and she is medically clear for discharge. Time Spent with Patient Time attestation: Total time spent providing and/or coordinating discharge services: Exam Narrative: GENERAL: Comfortable, no acute distress HENMT: moist mucous membranes EYES: EOM intact b/l NECK: no lymphadenopathy RESPIRATORY: clear to auscultation CARDIO: RRR GI: soft, nontender, bowel sounds present SKIN: no rashes EXTREMITIES: no edema, redness or tenderness DS: Data Data Completed and Pending Labs on day of discharge: Labs from last 24 hours 10/11/22 05:57 WBC 5.9 RBC 3.44 L Hgb 10.9 L Hct 33.0 L MCV 95.9 MCH 31.7 MCHC 33.0 RDW 13.0 Plt Count 207 MPV 10.3 Immature Gran % (Auto) 0.2 Neut % (Auto) 50.3 Lymph % (Auto) 39.1 Upson % (Auto) 7.3 Eos % (Auto) 2.4 Baso % (Auto) 0.7 Lymph # (Auto) 2.32 Upson # (Auto) 0.4 Eos # (Auto) 0.1 Baso # (Auto) 0.0 Abs Immat Gran (auto) 0.01 Absolute Neuts (auto) 3.0 Absolute Nucleated RBC 0.0 Nucleated RBC % 0.0 Sodium 134 L Potassium 4.1 Chloride 104 Carbon Dioxide 28 Anion Gap 2 L BUN 11 Creatinine 0.70 Estim Creat Clear Calc 103 Estimated GFR > 60 Glucose 88 Calcium 7.8 L Total Bilirubin 0.3 AST 19 ALT 14 Alkaline Phosphatase 36 L Total Protein 6.0 L Albumin 3.2 L Discharge Plan Discharge Attending physician on discharge: Carlos Eduardo Arita Consulting providers: David Baker; Bharat Perry; Debo Ramirez Discharging Clinician: Aye Salinas Patient Disposition: Home, Self-Care Activity: other - see discharge instructions Diet: regular Discharge Instructions: EEG ordered to be done as an outpatient. Follow up with Neurology with results. Go to primary care for stable removal in 5-7 days. Medications: Keppra 500 mg b.i.d. Activities: Avoid hazardous activities such as mild climbing or scuba diving. Seizure under these conditions could lead to fatal accident. Do not swim alone or p
== END 2022-10-11 18:45 | disposition home or self-care (01) ==
LOC: ANHED 19:41 → ANH3MED 10-09 05:59
PROVIDERS: Internal Medicine Critical Care Medicine; Physician Assistant; Admitting Provider Internal Medicine; Emergency Provider Physician Assistant; PCP Family Medicine; Visit Provider Internal Medicine
DX: S06.0XAA Concussion with loss of consciousness status unknown, initial encounter (principal); S01.01XA Laceration without foreign body of scalp, initial encounter; R55 Syncope and collapse; R40.4 Transient alteration of awareness; W18.39XA Other fall on same level, initial encounter; F17.290 Nicotine dependence, other tobacco product, uncomplicated
CPT/HCPCS: 36415; 70450; 70551; 72125; 80048; 80053; 81003; 83605; 83735; 84443; 84484; 85025; 85027; 85610; 85730; 93005; 93306; 93880; 96360; 96361; 96374; 99285; A9270; G0378; G0379; J1885; J2405; J7030

== ENCOUNTER 2023-03-10 09:37 | Outpatient (CLI) | payer OTHER, SELFPAY ==
--- NOTE | ~2023-03-10 | US_ITS ---
Limited Abdominal Sonogram: Real-time sonographic imaging of the right upper quadrant was performed. Clinical History: Abdominal pain Findings: The liver appears normal with no evidence of mass lesion or bile duct dilatation. Main por thomas vein demonstrates normal direction of flow. The gallbladder is well distended, and appears normal with no evidence of gallstone or wall thickening. The common bile duct measures 4 mm. The visualize d pancreas, aorta, and IVC are unremarkable. Impression: No significant abnormality seen. Reviewed, dictated and finalized at location . INSPECTOR Impression: No significant abnormality seen.
== END 2023-03-10 09:38 | disposition home or self-care (01) ==
LOC: ANHIMG 09:40
DX: R10.11 Right upper quadrant pain (principal)
CPT/HCPCS: 76705

== ENCOUNTER → 2023-10-10 09:37 | Outpatient (CLI) | payer OTHER, SELFPAY ==
--- NOTE | 2023-10-14 18:25 | WPDSLEEPSTUD ---
Sleep Study Date of Study: 10/10/23 Ordering Provider: Mandi Bergeron MD Interpreting Physician: Mandi Bergeron MD Sleep Study Type: Polysomnogram Height: 1.78 m Weight: 75.75 kg Body Mass Index: 23.9 Neck Circumference (inches): 13 [place]: 15 Reason for Sleep Study Excessive daytime sleepiness, cataplexy Sleep History Diane Shook is a 38-year old female with poor sleep for decades. She has had episodes of sleep walking, sleep talking, vivid dreams that her so real that day are almost indistinguishable from reality. The started when she was a small child. She has always had difficulty waking up and falling asleep. She is always capped half of does not alarms around and she has to force herself to get out of bed. After her last son was born she has had daily bowel out of sleep paralysis. She also is frequently bed ridden from weakness. She has episodes 1 or 2 times a week at most. Episodes of muscle weakness with strong emotion can occur with any situation, sitting upright her head falls to 1 side and she may feel like she is stuck in that position for an undetermined amount of time. Her paternal grand mother developed partial paralysis in her movements and speech, and the patient thinks that her grandmother might have had narcolepsy or another neurologic disorder. She has seen numerous biomedical photographer, general practitioner, parole or probation officer, psychiatrist, clinical psychologist and a neurologist. She has also seen a counselor and a health social work professor. 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 Medications prescribed tended to make things worse. On October 08, 2022 she had a tonic clonic seizure in a parking lot and sustained a head injury. During this evaluation the discussion of cataplexy was brought up. She has had several episodes of seizures and paralysis in the years leading up to this event. Her some witnessed this event. She finally new she that this was not a dream, it was real. She rarely awakens at night with heartburn, belching or coughing. She rarely snores. She never snores loudly enough that others complain. She rarely has difficulty sleeping with a cold. She rarely wakes up gasping for breath at night. She does not have breathing problems at night observed by others. She does not sweat excessively at night. She occasionally notices her heart pounding or beating irregularly. She frequently falls asleep during the day, frequently falls asleep involuntarily, occasionally falls asleep while driving. She frequently has loss of muscle tone with strong emotion. She occasionally has daytime difficulties due to excessive sleepiness. She constantly feels paralyzed on waking or falling asleep. She constantly has vivid dreamlike scenes upon awakening or falling asleep. She constantly feels afraid to go to sleep. She occasionally has nightmares. She constantly remembers her dreams and constantly has racing thoughts. She occasionally feels sad or depressed. She constantly has anxiety and muscular tension. She frequently notices parts of her body jerking. She frequently kicks at night and frequently has crawling or aching feelings in her legs at night. She constantly has leg pain during the night. She frequently has morning jaw pain. She frequently grinds her teeth during sleep. She frequently is bothered by pain during the day. She occasionally is awakened by pain at night. She always wakes up feeling stiff in the morning. She frequently wakes up with sore achy muscles and pain in the neck and spine. She gets overwhelmed easily. She can not keep up with her tasks at home or in school. She can not follow through incomplete projects. She has concentration difficulties. She has struggled for years by harsh words from others and she really started to believe these. She has chosen to be cell a bit after her son's father . She is focusing completely on taking care of her children. She is
[2023-10-19 14:13] VITALS: BMI 23.9
--- NOTE | 2023-10-19 14:15 | WPDSLEEPSTUD ---
Sleep Study Date of Study: 10/10/23 Ordering Provider: Mandi Bergeron MD Interpreting Physician: Mandi Bergeron MD Sleep Study Type: Multiple Sleep Latency Test Height: 1.78 m Weight: 75.75 kg Body Mass Index: 23.9 Neck Circumference (inches): 13 [place]: 15 Reason for Sleep Study History of excessive daytime sleepiness Sleep History Please refer to sleep history from the PS[facility] the night before this study. [facility] Past Medical History Medical History Anxiety Seizure disorder Single seizure Surgical History Surgical History History of tonsillectomy Family History Family History Other Unknown family medical history Social History Social History Social History: Surrogate medical decision maker: Leann Howe, mother. Code status: Full code. 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 Spiritual care concerns: No Medications Home Medications Medication Instructions Recorded Confirmed Type acetaminophen 325 mg tablet 650 mg PO PRN PRN Pain (Scale 10/08/22 08/22/23 History (Tylenol) Score 1-3) norgestimate 0.25 mg-ethinyl 1 tablet PO DAILY 10/08/22 08/22/23 History estradiol 35 mcg tablet (Haylee) levetiracetam 1,000 mg tablet 1,000 mg PO Q12H 05/02/23 08/22/23 History (Keppra) modafinil 200 mg tablet 200 mg PO QAM 1 month #30 tabs 10/16/23 Rx Sleep Procedure The recording montage for the MSLT includes central EEG (C3-A2, C4-A1) and occipital (O1-A2, O2-A1) derivations, left and right eye electrooculograms (EOGs), mental/submental electromyogram (EMG), and electrocardiogram (EKG). Nap 1 commenced at []. Sleep latency onset was 7.3 minutes. No REM occurred. Nap 1 was terminated at []. The patient said that sleep occurred. The patient reported dreaming. Nap 2 commenced at []. Sleep onset latency was 4 minutes. No REM occurred. Nap 2 was terminated at []. The patient said that sleep occurred. The patient reported dreaming. Nap 3 commenced at []. Sleep onset latency was 4.5 minutes. No REM occurred. Nap 3 was terminated at []. The patient said that sleep occurred. The patient reported dreaming. Nap 4 commenced at []. Sleep onset latency was 5 minutes. No REM occurred. Nap 4 was terminated at []. The patient said that sleep occurred. The patient reported dreaming. Nap 5 commenced at [] Sleep onset latency was 4.9 minutes. No REM occurred. Nap 5 was terminated at []. The patient said that sleep occurred. The patient reported dreaming. The mean sleep latency is 5.1 minutes. The patient slept on 5 of 5 nap opportunities. The patient perceived sleep on 5 naps. No REM occurred. Patient perceived dreaming on all naps. Sleep Architecture NA Respiratory Analysis NA Arousals NA Periodic Limb Movements NA Oximetry Data NA Snoring Profile NA Cardiac Profile NA EEG Profile No seizure activity. Assessment and Plan Assessment and Plan (1) Idiopathic hypersomnolence: Code(s): G47.11 - Idiopathic hypersomnia with long sleep time Status: Acute Assessment and Plan: This multiple sleep latency test on October 11, 2023 shows a mean sleep latency of 5.1 minutes, sleep on 5 of 5 nap opportunities, without sleep ons
[2023-10-19 14:22] VITALS: BMI 23.9
== END ==
LOC: ANHCSM 09:38
PROVIDERS: PCP Family Medicine; Visit Provider Internal Medicine Critical Care Medicine
DX: G47.10 Hypersomnia, unspecified (principal); G47.11 Idiopathic hypersomnia with long sleep time
CPT/HCPCS: 95805; 95810

== ENCOUNTER 2024-11-21 18:55 | Emergency (ER) | payer OTHER, SELFPAY ==
--- NOTE | ~2024-11-21 | XR_ITS ---
EXAMINATION: XR chest 2V 11/21/2024 21:13 INDICATION: Chest tightness PROCEDURE: 2 view chest COMPARISON: Comparison to multiple prior studies sequentially, with oldest reviewed study dated 04/20/2018. FINDINGS: The lungs are clear. The cardiomediastinal silhouette is within normal limits. There are no pleural effusions. There is no pneumothorax suspected. IMPRESSION: 1: NO ACUTE CARDIOPULMONARY DISEASE. Reviewed, dictated and finalized at location O.
--- NOTE | 2024-11-21 18:57 | ECG_ITS ---
Test Date: 2024-11-21 18:59:01 Measurements Intervals [place] Rate: 73 P: 81 NE: 187 QRS: 62 QRSD: 117 T: 66 QT: 382 QTc: 421 Interpretive Statements SINUS RHYTHM Electronically Signed On 11-21-2024 19:06:38 CDT by Juan Jeff M.D.
[2024-11-21 19:02] VITALS: BP 120/78; PULSE 73; RESP 18; TEMP 37.2; O2SAT 100
[2024-11-21 19:48] VITALS: BP 112/78; PULSE 71; RESP 14; TEMP 36.6; O2SAT 98
[2024-11-21 19:51] VITALS: BP 112/78; PULSE 72; RESP 18; TEMP 36.6; O2SAT 98
--- OUTSIDE RECORDS SUMMARY | 2024-11-21 20:06 | XMS_ITS | Clinical Summary ---
Author Organization [facility] Address [address] [place] [id number] Care Team Providers Care Quality Process Lead Name Role Phone None, Provider Primary Care Provider Amina Obregon SERVICE WORKER-BC Unavailable [phone] Social History Tobacco Use Types Packs/Day Years Used Date Smoking Tobacco: Never Assessed Comments Unknown Sex and Gender Information Value Date Recorded Sex Assigned at Female 11/17/2022 1:38 PM CDT Legal Sex Female 7:46 PM CDT Gender Identity Female 11/17/2022 1:38 PM CDT Sexual Orientation Not on file Plan of Treatment Health Maintenance Due Date Last Done Comments Cervical Cancer Screening Pa p Smear (Age 30 to 64) Every 3 Years 1985 Annual Physical 1988 Hepatitis C 09/30/2003 DTaP, Tdap and Td Vaccines ( 1 - Tdap) 2004 Hepatitis B Vaccines (1 of 3 - 19+ 3-dose series) 2004 HPV Vaccines (1 - 3-dose SCD M series) 2012 Cervical Cancer Screening Pa p with HPV Testing (Age 30 to 64) Every 5 Years 09/30/2015 Cervical Cancer Screening with HPV 09/30/2015 COVID-19 Vaccine (2023-2 5 season) 2024 Meningococcal B Vaccine Aged Out No l onger eligible based on patient's age to complete this topic Meningococcal Vaccine Aged Out No zachary leroy eligible based on patient's age to complete this topic Pneumococcal Vaccine: Pediat rics (0 to 5 Years) and At-Risk Patients (6 to 49 Years) Aged Out No longer eligible b ased on patient's age to complete this topic RSV Immunizations Under 20 Months Aged Out No longer eligible based on patient's age to complete this topic Insurance [employer] Care Teams Quality Process Lead Relationship Specialty Start Date End Date None, Provider, PCP - General 12/31/20 Amina Vance FNP-MELIZA NURSE PRACTITIONER 12/31/20
--- NOTE | 2024-11-21 20:34 | ED_ITS ---
HPI - Arrhythmia/Palpitations General Chief Complaint: Arrhythmia/Palpitations Stated Complaint: HEART PALPATATIONS Time Seen by Provider: 11/21/24 19:52 History of Present Illness HPI narrative: Patient is a 39-year-old female who presents to the ER with concerns for heart palpitation for the past 3 days. She reports she intermittently spikes up to the 140s through 180s, which she is alerted to by her phone. Patient reports she becomes symptomatic with the spikes including lightheadedness, nausea, and shortness of breath. She denies any recent fevers, cough, or urinary symptoms. Patient endorses a history of seizures, severe anxiety, and narcolepsy. She reports she has no cardiac history. Related Data Home Medications ?Medication ?Instructions ?Recorded ?Confirmed ?Last Taken ?Type levetiracetam 1,000 mg tablet 3,000 mg PO Q12H 5 10/03/24 Unknown History (Kepp) nicotine 21 mg/24 hr daily 1 patch transdermal DAILY 0 09/02/24 10/03/24 Unknown History transdermal patch Allergies Allergy/AdvReac Type Severity Reaction Status Date / Time venlafaxine (From Effexor) Allergy Severe Seizure Verified 11/21/24 18:55 Review of Systems 2 Review of Systems: All systems reviewed & are unremarkable except as noted in HPI and below PMFSH Past Medical History Medical History Seizure disorder Single seizure Anxiety Surgical History Surgical History History of tonsillectomy Family History Family History Other Unknown family medical history Social History Social History Social History: Surrogate medical decision maker: Leann Howe, mother. Code status: Full code. 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 Spiritual care concerns: No Exam 2 Narrative: GENERAL: Well appearing, well-nourished, non-toxic, in no acute distress. HEAD: Normocephalic, atraumatic. NECK: Supple. No adenopathy, no masses. RESPIRATORY: Airway patent, respirations nonlabored. Clear to auscultation bilaterally, no rales, rhonchi, wheezing. CARDIOVASCULAR: Regular rate and rhythm without murmurs, rubs, or gallops. Peripheral pulses 2+ and equal bilaterally. ABDOMINAL: Soft, nontender, nondistended, no hepatosplenomegaly. Normoactive BS. MUSCULOSKELETAL: Moves all extremities. Strength/ROM intact without gross deformities. SKIN: Warm, dry, normal color. No rashes. NEURO: A&O X3. Speech clear. Cranial nerves II-XII intact. No ataxic movements. PSYCHIATRIC: Appropriate mood and affect. Normal interaction. Course Vital Signs Vital signs: Vital Signs Temperature 37.2 C 11/21/24 19:02 Pulse Rate 73 11/21/24 19:02 Respiratory Rate 18 11/21/24 19:02 Blood Pressure 120/78 11/21/24 19:02 Pulse Oximetry 100 11/21/24 19:02 Oxygen Delivery Room Air 11/21/24 19:02 Temperature 36.6 C 11/21/24 19:51 Pulse Rate 73 11/21/24 21:53 Respiratory Rate 17 11/21/24 21:53 Blood Pressure 101/64 11/21/24 21:53 Pulse Oximetry 100 11/21/24 21:53 Oxygen Delivery Room Air 11/21/24 19:48 MDM - Arrhythmia/Palpitations MDM Narrative Medical decision making narrative: Patient is a 39-year-old female who presents to the ER with concerns for heart palpitation for the past 3 days. She reports she intermittently spikes up to the 140s through 180s, which she is alerted to by her phone. Patient reports she becomes symptomatic with the spikes including lightheadedness, nausea, and shortness of breath. She denies any recent fevers, cough, or urinary symptoms. Patient endorses a history of seizures, severe anxiety, and narcolepsy. She reports she has no cardiac history. Labs Ordered: CBC, CMP, PTT, INR, TSH, troponin, D-dimer, UA, UDS Imaging Ordered: Chest x-ray Medications Ordered: Ativan p.o. Results: Patient's chest x-ray indicates NO ACUTE CARDIOPULMONARY DISEASE. Diagnosis: Heart palpitations, anxiety Risks: HEART score: low risk HEART Score for Major Cardiac Events from [employer] on 11/21/2024 All calculations should be rechecked by clinician prior to use RESULT SUMMARY: 1 points Low Score (0-3 points) Risk of MACE of 0.9-1.7%. INPUTS: History ?> 0 = Slightly suspicious EKG ?> 0 = Normal Age ?> 0 = <45 Risk factors ?> 1 = 1-2 risk factors Initial troponin ?> 0 = <Normal limit Consults: cardiology (outpatient) Patient Education/Shared MDM: Results of lab work and imaging shared with patient. She reports she continues to experience intermittent palpitations although nothing has been captured during the 4 hours patient has been in the emergency department. It was discussed that patient's symptoms may be related to anxiety or it may be due to her iPhone application dysfunctioning. Patient strongly advised to maintain hydration status upon discharge and follow-up with her PCP and registered midwife as soon as possible. She will be discharged home with a prescription for hydroxyzine. Strict return precautions provided. Patient verbalized understanding and is in agreement with plan. Vital signs stable at time of discharge. All questions answered. Differential Diagnosis Differential diagnosis: Likely palpitations, anxiety, artial fibrillation and supraventricular tachycardia Lab Data Attestation: I reviewed the patient's lab results. 11/21/24 20:55 11/21/24 20:55 Labs: Lab Results 11/21/24 11/21/24 Range/Units 20:49 20:55 WBC 6.7 (4.5-10.0) K/mm3 RBC 3.62 L (4.2-5.4) M/mm3 Hgb 11.6 L (12.0-15.0) g/dL Hct 34.4 L (37.0-47.0) % MCV 95.0 (80-100) fl MCH 32.0 (26-34) pg MCHC 33.7 (32-36) g/dl RDW 12.9 (11.5-14.5) % Plt Count 196 (150-375) k/mm3 MPV 10.4 (7.4-10.4) fl Immature Gran % (Auto) 0.3 (0-0.5) % Neut % (Auto) 59.6 (45.5-73.1) % Lymph % (Auto) 31.4 (18.3-44.2) % [place] % (Auto) 7.2 (2.6-8.5) % Eos % (Auto) 0.9 (0-4.4) % Baso % (Auto) 0.6 (0.2-1.2) % Lymph # (Auto) 2.11 (0.9-3.2) K/mm3 [place] # (Auto) 0.5 (0.1-0.6) K/mm3 Eos # (Auto) 0.1 (0-0.3) K/mm3 Baso # (Auto) 0.0 (0.0-0.1) K/mm3 Abs Immat Gran (auto) 0.02 (0.00-0.031) K/mm3 Absolute Neuts (auto) 4.0 (1.3-6.7) K/mm3 Absolute Nucleated RBC 0.000 (0.0-0.012) K/mm3 Nucleated RBC % 0.0 (0.0-0.2) % PT 14.8 H (11.1-14.7) Seconds INR 1.1 APTT 29.3 (22.3-36.8) Seconds D-Dimer < 0.27 (<0.48) ug/mL Sodium 135 L (137-145) mmol/L Potassium 3.9 (3.4-5.0) mmol/L Chloride 101 (98-107) mmol/L Carbon Dioxide 26 (22-30) mmol/L Anion Gap 8 (4-12) mmol/L BUN 8 (7-17) mg/dL Creatinine 0.60 L (0.7-1.0) mg/dL Estim Creat Clear Calc 13 ml/min Estimated GFR > 60 (59 - ) Glucose 84 (65-110) mg/dL Calcium 8.6 (8.4-10.2) mg/dL Total Bilirubin 0.4 (0.2-1.3) mg/dL AST 22 (14-36) U/L ALT 14 (6-35) U/L Alkaline Phosphatase 57 (38-126) U/L Troponin I < 0.012 (0.000-0.034) ng/mL Total Protein 7.3 (6.3-8.2) g/dL Albumin 4.6 (3.5-5.1) g/dL TSH (Reflex) 4.320 (0.465-4.68) uIU/mL Free T4 1.06 (0.78-2.19) ng/dL Total T3 Pending Urine Color Yellow (Yellow) Urine Appearance Clear (Clear) Urine pH 7.0 (5.0-9.0) Ur Specific [place] 1.006 (1.001-1.035) Urine Protein Negative (Negative) mg/dL Urine Glucose (UA) Negative (Negative) mg/dL Urine Ketones Negative (Negative) mg/dL Ur Blood (Man) Negative (Negative) Urine Nitrate Negative (Negative) Urine Bilirubin Negative (Negative) Urine Urobilinogen 0.2 (<2.0) mg/dL Leukocyte Esterase Rfl Negative (Negative) ALENA/UL POC Urine HCG, Qual Negative (Negative) Urine Opiates Screen Negative (Negative) Urine Methadone Screen Negative (Negative) Ur Barbiturates Screen Negative (Negative) Ur Phencyclidine Scrn Negative (Negative) Ur Amphetamine Screen Negative (Negative) U Benzodiazepines Scrn Negative (Negative) Urine Cocaine Screen Negative (Negative) U Cannabinoids Screen Negative (Negative) Imaging Data Attestation: I personally reviewed and interpreted this imaging study as follows: Radiologist's impression: Impressions Chest X-Ray 11/21/24 21:16 IMPRESSION: 1: NO ACUTE CARDIOPULMONARY DISEASE. ECG Data EKG #1: Attestation: I personally reviewed and interpreted this ECG as follows: ECG completion date: 11/21/24 ECG completion time: 23:13 Prior ECG tracings: available for review EKG Interpretation: normal rate, no ectopy, no ST changes and normal QT Discharge Plan Discharge Clinical Impression: Palpitations, Anxiety, Nicotine dependence due to vaping non-tobacco product, History of seizure Patient Disposition: Home Condition: Stable Instructions: Antibiotic Form, Heart Palpitations (ED), Noncardiac Chest Pain (ED) Additional Instructions: Please return to the ER with any worsening symptoms. Follow-up with your primary care provider as soon as possible. You may also follow-up with Cardiology as needed. Take all medications as prescribed, including regularly scheduled medications. You may take hydroxyzine as needed for episodes of anxiety. Patient Language: Burmese Prescriptions: New hydroxyzine HCl 25 mg tablet 25 mg PO TID PRN (Reason: an) Qty: 20 0RF No Action levetiracetam [Keppra] 1,000 mg tablet 3,000 mg PO Q12H nicotine 21 mg/24 hr patch 24 hour 1 patch transdermal DAILY modafinil 200 mg tablet 200 mg PO BID 30 Days Qty: 60 3RF Rx Instructions: Take one on waking, repeat 5-6 hours later. modafinil 200 mg tablet 200 mg PO BID 15 Days Qty: 30 5RF modafinil 200 mg tablet 200 mg PO BID 30 Days Qty: 60 0RF Rx Instructions: Take one in the morning, repeat in the afternoon 1-2 pm. Follow-up/Referrals: Sathish Best DO [Physician, Cardiology] Referral Note: cardiology Crook,Kiera Johnson MD [Primary Care Provider, Unknown] Stand Alone Forms: Work/School Release IP Time of Disposition: 23:17
[2024-11-21 20:51] LABS: BEDSIDEPREGUCG Negative (Negative)
[2024-11-21 21:02] VITALS: BP 117/82; PULSE 60; RESP 17; O2SAT 99
[2024-11-21 21:03] LABS: Add Urine Microscopic? NO; Appearance Urine Clear (Clear); Glucose Urine UA Negative (Negative); Hematocrit 34.4 % (37.0-47.0); Hemoglobin 11.6 g/dL (12.0-15.0); Immature Granulocyte Percent A 0.3 % (0-0.5); Leukocyte Esterase Ur Negative LEU/UL (Negative); Lymphocytes Absolute Auto 2.11 K/mm3 (0.9-3.2); Mean Corpuscular HGB Conc 33.7 g/dl (32-36); Mean Corpuscular Hemoglobin 32.0 pg (26-34); Mean Corpuscular Volume 95.0 fl (80-100); Nitrate Urine Negative (Negative); Nucleated Red Blood Cells Absolute Auto 0.000 K/mm3 (0.0-0.012); Nucleated Red Blood Cells Perc 0.0 % (0.0-0.2); Platelet Count Result 196 k/mm3 (150-375); Red Blood Count 3.62 M/mm3 (4.2-5.4); Specific Grav Ur 1.006 (1.001-1.035); White Blood Count 6.7 K/mm3 (4.5-10.0)
[2024-11-21 21:14] LABS: Alanine Aminotransferase 14 U/L (6-35); Albumin Level 4.6 g/dL (3.5-5.1); Alkaline Phosphatase 57 U/L (38-126); Anion Gap 8 mmol/L (4-12); Aspartate Amino Transferase 22 U/L (14-36); Bilirubin,Total 0.4 mg/dL (0.2-1.3); Blood Urea Nitrogen 8 mg/dL (7-17); Calcium 8.6 mg/dL (8.4-10.2); Carbon Dioxide 26 mmol/L (22-30); Chloride 101 mmol/L (98-107); Estimated CRCL calculation 13 ml/min; Estimated Glomerular Filt Rate > 60; Glucose 84 mg/dL (65-110); Potassium 3.9 mmol/L (3.4-5.0); Sodium 135 mmol/L (137-145); Total Protein 7.3 g/dL (6.3-8.2)
[2024-11-21 21:20] LABS: Cannabinoid Screen Urine Negative (Negative)
[2024-11-21 21:26] LABS: INR 1.1; Prothrombin Time 14.8 Seconds (11.1-14.7); Troponin I < 0.012 ng/mL (0.000-0.034)
[2024-11-21 21:32] LABS: Partial Thromboplastin Time 29.3 Seconds (22.3-36.8)
[2024-11-21 21:49] LABS: Thyroid Stimulating Hormone Reflex 4.320 uIU/mL (0.465-4.68)
[2024-11-21 21:53] VITALS: BP 101/64; PULSE 73; RESP 17; O2SAT 100
[2024-11-21 22:14] LABS: Free T4 Free Thyroxine Reflex 1.06 ng/dL (0.78-2.19)
[2024-11-21 23:13] VITALS: BP 110/75; PULSE 74; RESP 18; O2SAT 99
[2024-11-21 23:27] LABS: Total Triiodothyronine (T3) 1.05 NG/ML (0.82-1.58)
[2024-11-21] MEDS: LORazepam (*CRX) 1 MG TABLET PO (23:27)
== END 2024-11-21 23:31 | disposition home or self-care (01) ==
PROVIDERS: Emergency Medicine; Emergency Provider Registered Nurse; PCP Family Medicine
DX: R00.2 Palpitations (principal); F41.9 Anxiety disorder, unspecified; F17.290 Nicotine dependence, other tobacco product, uncomplicated; G40.909 Epilepsy, unspecified, not intractable, without status epilepticus
CPT/HCPCS: 36415; 71046; 80053; 80307; 81003; 81025; 84439; 84443; 84480; 84484; 85025; 85380; 85610; 85730; 93005; 99284; A9270